=== PATIENT | female | born 2000 | race Caucasian/White ===

== ENCOUNTER 2022-05-02 08:35 | Emergency (ER) | payer MEDICAID ==
[~2022-05-02] VITALS: Ht 167.6 cm; Wt 77.1 kg
[2022-05-02 08:37] VITALS: BP_SYST 130
--- NOTE | 2022-05-02 08:42 | NUR ---
Placed in room 6 . Placed on medicare coordinator, blood pressure machine and pulse oximeter. To gown for exam. Side rails up. Report given to SIVAKUMAR WOLF.
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
--- NOTE | 2022-05-02 09:05 | NUR ---
ER Dr. Nettles at bedside examining patient.
[2022-05-02] MEDS ORDERED: methocarbamoL 500 MG TABLET PO ONE (09:15)
[2022-05-02] MEDS ORDERED: KETOROLAC TROMETHAMINE 30 MG VIAL IM ONE (09:15)
--- NOTE | 2022-05-02 10:55 | NUR ---
PT REPORTS IMPROVEMENT IN PAIN /10. AWAITING ANKLE XRAY RESULTS. WILL CONT TO MONITOR
[2022-05-02] MEDS ORDERED: METH-634 PO (10:57)
[2022-05-02] MEDS ORDERED: IBUP-1969 PO (10:57)
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
[2022-05-02 11:25] VITALS: BP_SYST 129
== END 2022-05-02 11:22 | disposition home or self-care (01) ==
LOC: SED 08:35
DX: S93.401A Sprain of unspecified ligament of right ankle, initial encounter (principal); S80.01XA Contusion of right knee, initial encounter; S50.02XA Contusion of left elbow, initial encounter; V49.40XA Driver injured in collision with unspecified motor vehicles in traffic accident, initial encounter; Y93.89 Activity, other specified; Y92.89 Other specified places as the place of occurrence of the external cause; Y99.8 Other external cause status
CPT/HCPCS: 71045; 73080; 73564; 73610; 81025; 96372; 99284; J1885